=== PATIENT | female | born 1970 | race Caucasian/White ===

== ENCOUNTER 2019-10-04 15:03 | Emergency (ER) | payer OTHER ==
[~2019-10-04] VITALS: Ht 167.6 cm; Wt 122.5 kg
[~2019-10-04 15:03] MED LIST: CARVEDILOL12.5 MG PO; GEMFIBROZIL1 GM PO; LISINOPRIL10 MG PO; NORVASC2.5 MG PO
[2019-10-04] MEDS ORDERED: METFORMIN HCL500 M3 PO (15:17)
[2019-10-04] MEDS ORDERED: VICTOZA0.6 MG/0.1 SUBQ (15:17)
[2019-10-04 15:35] LABS: URINE BILIRUBIN NEGATIVE (Negative); URINE BLOOD NEGATIVE (Negative); URINE CLARITY CLEAR; URINE COLOR YELLOW; URINE GLUCOSE-RANDOM* NEGATIVE (Negative); URINE KETONES TRACE (Negative); URINE LEUKOCYTES-REFLEX NEGATIVE (Negative); URINE NITRITE-REFLEX NEGATIVE (Negative); URINE PROTEIN (DIPSTICK) NEGATIVE (Negative)
[2019-10-04 16:13] LABS: ABSOLUTE NEUTROPHILS 2.7 thou/uL (1.4-8.2); BASOPHILS 0.6 % (0.0-2.0); EOSINOPHILS 2.8 % (0.0-3.0); HEMATOCRIT 36.6 % (37.0-47.0); HEMOGLOBIN 12.5 gm/dL (12.0-15.0); MCH 27.9 pg (26.0-34.0); MCHC 34.2 g/dL (28.0-37.0); MCV 81.6 fL (80.0-100.0); MONOCYTES 8.4 % (1.0-8.0); PLATELET COUNT 234 thou/uL (150-400); POLYS 55.2 % (36.0-66.0); RBC 4.49 mil/uL (4.20-5.00); RDW 14.3 % (10.5-14.5); WBC 4.8 thou/uL (4.0-11.0)
[2019-10-04 16:22] LABS: CALCIUM 8.8 mg/dL (8.5-10.1); POTASSIUM 4.2 mmol/L (3.5-5.1)
[2019-10-04 16:27] LABS: ALBUMIN 3.3 g/dL (3.4-5.0); TOTAL BILIRUBIN 0.2 mg/dL (0.2-1.0)
[2019-10-04] MEDS ORDERED: PEPCID40 MG PO (16:58)
[2019-10-04] MEDS ORDERED: ZOFRAN ODT4 MG PO (16:58)
[2019-10-04] MEDS ORDERED: BENTYL 20 MG TA20 M1 PO (16:58)
[2019-10-04 17:13] VITALS: BP 141/103
--- NOTE | 2019-10-06 08:48 | EKG ---
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 10/06/19 0846 1558 1558 Taz France MD, [facility] /EPI
[2019-10-07] MEDS ORDERED: NAPROSYN500 MG PO (00:02)
[2019-10-07] MEDS ORDERED: NORCO 5-325 TA1 EAC1 PO (00:02)
[2019-10-07] MEDS ORDERED: ONDANSETRON ODT8 MG PO (00:02)
== END 2019-10-04 17:13 | disposition home or self-care (01) ==
LOC: ER 15:03
PROVIDERS: Nurse Practitioner Family
DX: R10.84 Generalized abdominal pain (principal); R11.2 Nausea with vomiting, unspecified; I10 Essential (primary) hypertension; E66.9 Obesity, unspecified; Z88.6 Allergy status to analgesic agent; Z88.5 Allergy status to narcotic agent; Z79.899 Other long term (current) drug therapy; Z87.442 Personal history of urinary calculi; Z90.710 Acquired absence of both cervix and uterus

== ENCOUNTER 2019-10-14 10:53 | Emergency (ER) | payer OTHER ==
[~2019-10-14] VITALS: Ht 167.6 cm; Wt 104.3 kg
[~2019-10-14 10:53] MED LIST changes: +BENTYL 20 MG TA20 M1 PO; +METFORMIN HCL500 M3 PO; +NAPROSYN500 MG PO; +NORCO 5-325 TA1 EAC1 PO; +ONDANSETRON ODT8 MG PO; +PEPCID40 MG PO; +VICTOZA0.6 MG/0.1 SUBQ; +ZOFRAN ODT4 MG PO
[2019-10-14 11:58] LABS: CALCIUM 9.3 mg/dL (8.5-10.1); CREATININE 1.1 mg/dL (0.6-1.0); MAGNESIUM 1.9 mg/dL (1.8-2.4); POTASSIUM 3.8 mmol/L (3.5-5.1)
[2019-10-14 12:05] LABS: ABSOLUTE NEUTROPHILS 2.9 thou/uL (1.4-8.2); BASOPHILS 0.5 % (0.0-2.0); EOSINOPHILS 4.7 % (0.0-3.0); HEMATOCRIT 40.8 % (37.0-47.0); HEMOGLOBIN 13.6 gm/dL (12.0-15.0); LYMPHOCYTES 38.3 % (24.0-44.0); MCH 27.6 pg (26.0-34.0); MCHC 33.4 g/dL (28.0-37.0); MCV 82.6 fL (80.0-100.0); MONOCYTES 7.1 % (1.0-8.0); PLATELET COUNT 241 thou/uL (150-400); POLYS 49.4 % (36.0-66.0); RBC 4.94 mil/uL (4.20-5.00); RDW 14.8 % (10.5-14.5); WBC 5.8 thou/uL (4.0-11.0)
[2019-10-14 12:22] LABS: URINE BLOOD NEGATIVE (Negative); URINE CLARITY CLEAR; URINE COLOR YELLOW; URINE GLUCOSE-RANDOM* NEGATIVE (Negative); URINE KETONES TRACE (Negative); URINE LEUKOCYTES-REFLEX NEGATIVE (Negative); URINE NITRITE-REFLEX NEGATIVE (Negative); URINE PROTEIN (DIPSTICK) NEGATIVE (Negative); URINE SPECIFIC GRAVITY >= 1.030 (1.005-1.035); URINE UROBILINOGEN 0.2 E.U./dl (0.2-1.0)
[2019-10-14 12:25] LABS: URINE BILIRUBIN NEGATIVE (Negative)
[2019-10-14 12:26] LABS: ICTOTEST (BILI CONFIRMATORY) Negative (Negative)
[2019-10-14 14:06] VITALS: BP 151/104
--- NOTE | 2019-10-14 16:04 | EKG ---
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[facility] : 1970 Requested By: Stefan Ron Order Number: [id number] MD: Bahman Malone Measurements Intervals [place] Rate: 99 P: 23 CT: 153 QRS: -19 QRSD: 91 T: 64 QT: 352 QTc: 452 Interpretive Statements Sinus rhythm Left ventricular hypertrophy Inferior infarct, old Compared to ECG 10/04/2019 15:58:50 Left ventricular hypertrophy now present Myocardial infarct finding now present Electronically Signed On 10-14-2019 16:03:29 CDT by Bahman Maolne [email or web address] <ELECTRONICALLY SIGNED> By: Bahman Malone MD 10/14/19 1603 1107 1107 Bahman Malone MD /EPI
== END 2019-10-14 14:09 | disposition home or self-care (01) ==
LOC: ER 10:53
PROVIDERS: Emergency Medicine
DX: S09.90XA Unspecified injury of head, initial encounter (principal); R53.1 Weakness; M79.601 Pain in right arm; R11.10 Vomiting, unspecified; R30.9 Painful micturition, unspecified; I10 Essential (primary) hypertension; Z90.710 Acquired absence of both cervix and uterus; Z87.891 Personal history of nicotine dependence; Z79.899 Other long term (current) drug therapy; Z88.8 Allergy status to other drugs, medicaments and biological substances; W18.39XA Other fall on same level, initial encounter; Y93.89 Activity, other specified; Y92.89 Other specified places as the place of occurrence of the external cause; Y99.8 Other external cause status

== ENCOUNTER 2019-11-30 15:57 | Emergency (ER) | payer OTHER ==
[~2019-11-30] VITALS: Ht 167.6 cm; Wt 108.8 kg
[2019-11-30 16:29] LABS: URINE BILIRUBIN NEGATIVE (Negative); URINE BLOOD NEGATIVE (Negative); URINE CLARITY CLEAR; URINE COLOR YELLOW; URINE GLUCOSE-RANDOM* NEGATIVE (Negative); URINE KETONES NEGATIVE (Negative); URINE LEUKOCYTES-REFLEX NEGATIVE (Negative); URINE NITRITE-REFLEX NEGATIVE (Negative); URINE PROTEIN (DIPSTICK) NEGATIVE (Negative); URINE SPECIFIC GRAVITY 1.025 (1.005-1.035)
[2019-11-30 16:36] LABS: MCH 27.7 pg (26.0-34.0); PLATELET COUNT 231 thou/uL (150-400)
[2019-11-30 16:37] LABS: ABSOLUTE NEUTROPHILS 2.4 thou/uL (1.4-8.2); BASOPHILS 1.7 % (0.0-2.0); CALCIUM 9.1 mg/dL (8.5-10.1); CREATININE 1.1 mg/dL (0.6-1.0); EOSINOPHILS 3.4 % (0.0-3.0); HEMOGLOBIN 12.1 gm/dL (12.0-15.0); LYMPHOCYTES 39.4 % (24.0-44.0); MCHC 33.6 g/dL (28.0-37.0); MCV 82.4 fL (80.0-100.0); MONOCYTES 6.6 % (1.0-8.0); POLYS 48.9 % (36.0-66.0); POTASSIUM 4.4 mmol/L (3.5-5.1); RBC 4.37 mil/uL (4.20-5.00)
[2019-11-30 16:44] LABS: ALBUMIN 3.5 g/dL (3.4-5.0); TOTAL BILIRUBIN 0.2 mg/dL (0.2-1.0); TOTAL PROTEIN 7.4 g/dL (6.4-8.2)
[2019-11-30] MEDS ORDERED: PROTONIX40 M4 PO (18:02)
[2019-11-30] MEDS ORDERED: ZOFRAN ODT4 MG PO (18:02)
[2019-11-30 18:15] VITALS: BP 155/104
--- NOTE | 2019-12-01 08:19 | EKG ---
[facility] [place] [address] [place] [address] ELECTROCARDIOGRAM REPORT Name: SELENE WHITE Room #: 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 : 1970 Requested By: Mike Aguilar Order Number: [id number] MD: Taz France Measurements Intervals [place] Rate: 87 P: 12 NM: 171 QRS: -16 QRSD: 95 T: 50 QT: 349 QTc: 420 Interpretive Statements Sinus rhythm Left ventricular hypertrophy Poor R wave progression Inferior infarct, age indeterminate Compared to ECG 10/14/2019 11:07:14 No significant change was found Electronically Signed On 12-01-2019 8:19:42 CDT by Taz France [email or web address] <ELECTRONICALLY SIGNED> By: Taz France MD, [facility] 12/01/19 0819 1716 1716 Taz France MD, [facility] /EPI
== END 2019-11-30 18:16 ==
LOC: ER 15:57
PROVIDERS: Emergency Medicine
DX: R07.89 Other chest pain (principal); R11.2 Nausea with vomiting, unspecified; R10.11 Right upper quadrant pain; I10 Essential (primary) hypertension; Z90.710 Acquired absence of both cervix and uterus; Z79.899 Other long term (current) drug therapy; Z88.8 Allergy status to other drugs, medicaments and biological substances

== ENCOUNTER 2019-12-04 20:02 | Emergency (ER) | payer OTHER ==
[~2019-12-04] VITALS: Ht 152.4 cm; Wt 108.9 kg
[~2019-12-04 20:02] MED LIST changes: +PROTONIX40 M4 PO
[2019-12-04 20:25] LABS: HEMATOCRIT 38.7 % (37.0-47.0); HEMOGLOBIN 13.1 gm/dL (12.0-15.0); MCH 27.6 pg (26.0-34.0); MCHC 33.8 g/dL (28.0-37.0); MCV 81.5 fL (80.0-100.0); RBC 4.75 mil/uL (4.20-5.00); RDW 14.5 % (10.5-14.5); WBC 5.6 thou/uL (4.0-11.0)
[2019-12-04 20:32] LABS: URINE BILIRUBIN NEGATIVE (Negative); URINE BLOOD NEGATIVE (Negative); URINE CLARITY CLEAR; URINE COLOR YELLOW; URINE GLUCOSE-RANDOM* NEGATIVE (Negative); URINE KETONES NEGATIVE (Negative); URINE LEUKOCYTES-REFLEX NEGATIVE (Negative); URINE NITRITE-REFLEX NEGATIVE (Negative); URINE PROTEIN (DIPSTICK) NEGATIVE (Negative); URINE SPECIFIC GRAVITY 1.015 (1.005-1.035)
[2019-12-04 20:42] LABS: ANION GAP 12 mmol/L (7-16); BUN 15 mg/dL (7-18); CALCIUM 9.4 mg/dL (8.5-10.1); CHLORIDE 104 mmol/L (98-107); CO2 23 mmol/L (21-32); GLUCOSE 127 mg/dL (74-106); SODIUM 139 mmol/L (136-145)
[2019-12-04 20:48] LABS: ALBUMIN 3.9 g/dL (3.4-5.0); LIPASE 224 U/L (73-393); SGOT 24 U/L (15-37); SGPT 37 U/L (30-65); TOTAL BILIRUBIN 0.4 mg/dL (0.2-1.0); TOTAL PROTEIN 7.6 g/dL (6.4-8.2); TROPONIN-I <0.06 ng/mL (<0.06)
[2019-12-04] MEDS ORDERED: CARAFATE 1 GM TA1 GM PO (21:25)
[2019-12-04 21:28] VITALS: BP 150/113
--- NOTE | 2019-12-05 09:16 | EKG ---
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: F 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[place] [id number] : 1970 Requested By: George Flores Order Number: [id number] MD: Taz France Measurements Intervals [place] Rate: 90 P: 6 IA: 167 QRS: -14 QRSD: 92 T: 56 QT: 458 QTc: 561 Interpretive Statements Sinus rhythm Inferior infarct, old Prolonged QT interval Baseline wander in lead(s) III,aVF,V6 Compared to ECG 11/30/2019 17:16:14 Prolonged QT interval now present Electronically Signed On 12-05-2019 9:15:56 CDT by Taz France [email or web address] <ELECTRONICALLY SIGNED> By: Taz France MD, [facility] 12/05/19 0915 16 16 Taz France MD, [facility] /EPI
== END 2019-12-04 21:29 | disposition home or self-care (01) ==
LOC: ER 20:02
PROVIDERS: Emergency Medicine
DX: R10.13 Epigastric pain (principal); R11.2 Nausea with vomiting, unspecified; I10 Essential (primary) hypertension; Z88.6 Allergy status to analgesic agent; Z88.5 Allergy status to narcotic agent; Z79.899 Other long term (current) drug therapy; Z90.710 Acquired absence of both cervix and uterus; Z87.442 Personal history of urinary calculi

== ENCOUNTER 2020-01-06 08:03 | Emergency (ER) | payer OTHER ==
[~2020-01-06] VITALS: Ht 167.6 cm; Wt 111.1 kg
--- NOTE | ~2020-01-06 | EMS ---
[facility] [address] [place] [address] EMS Patient Care Report Name: SELENE WHITE Room #: PRE M.R.#: [id number] Admission: Attend Phys: Discharge: Date of : 72 Report #: [id number] THIS REPORT FOR: //name// Report Transmitted: 01/06/2020 08:08 EMS Care Summary [place], [place]/[facility] Incident [id number] @ 01/06/2020 07:35 Incident Location [address] [place] [address] [address] Patient SELENE WHITE Female, 49 Years 1970 Patient Address [address] [place] [address] [address] [place] [address] Patient History Diabetes,Hypertension (HTN),Kidney Stone, Patient Allergies Toradol,Compazine, Patient Medications Lisinopril, Metformin, Atorvastatin, Victoza, Carvedilol, Chief Complaint back pain, cough Disposition Transported No Lights/[place] Dispatch Reason Back Pain (Non-Traumatic) Transported To [facility] Narrative PT FOUND SITTING OUTSIDE. PT STATES SHE HAS BACK PAIN AND A COUGH FOR 2 DAYS. PT DENIES OTHER COMPLAINTS. PT ASSITED TO AMBULANCE. PT GIVEN MASK FOR TRASNPORT. PT TRANSPORTED WITHOUT INCIDENT. [facility] [address] [place] [address] EMS Patient Care Report Name: SELENE WHITE Room #: PRE M.R.#: [id number] Admission: Attend Phys: Discharge: Date of : 72 Report #: [id number] Initial Vitals @07:48P: 91,R: 18,BP: 126/86,Pain: 4/10,GCS: 15,CO: 2,SpO2: 97,Revised Trauma: 12, Assessments @07:45MENTAL:No Abnormalities,SKIN:No Abnormalities,HEENT:Head/Face: No Abnormalities,Eyes: No Abnormalities,Neck/Airway: No Abnormalities,LUNG SOUNDS:ABDOMEN:PELVIS//GI:EXTREMITIES:PULSE:NEURO:No Abnormalities, Impression Back Pain Procedures @07:45ALS AssessmentResponse: UnchangedSucceeded Timeline 07:34,Call Received 07:34,Dispatch Notified 07:35,Dispatched 07:38,En Route 07:42,On Scene 07:45,At Patient 07:45,ALS Assessment,Response: UnchangedSucceeded, 07:47,Depart Scene 07:48,BP: 126/86 M,PULSE: 91,RR: 18 R,SPO2: 97 Ox,ETCO2: ,BG: ,PAIN: 4,GCS: 15, 08:00,At Destination 08:15,Call Closed Disclaimer v1.1 Copyright 2020 [employer] This EMS Care Summary contains data elements from the applicable legal record (which may be displayed differently). It is designed to provide pertinent information for the following purposes: continuity of care, clinical quality, and state data reporting. The complete legal record is available to ED staff and administrators of the receiving hospital in [facility]'s Patient Tracker. All data is provided "as is."
[~2020-01-06 08:03] MED LIST changes: +CARAFATE 1 GM TA1 GM PO
[2020-01-06 09:53] LABS: URINE BILIRUBIN NEGATIVE (Negative); URINE BLOOD NEGATIVE (Negative); URINE CLARITY CLEAR; URINE COLOR YELLOW; URINE GLUCOSE-RANDOM* NEGATIVE (Negative); URINE KETONES NEGATIVE (Negative); URINE LEUKOCYTES-REFLEX NEGATIVE (Negative); URINE NITRITE-REFLEX NEGATIVE (Negative); URINE PROTEIN (DIPSTICK) NEGATIVE (Negative); URINE UROBILINOGEN 0.2 E.U./dl (0.2-1.0)
[2020-01-06 11:18] VITALS: BP 114/80
== END 2020-01-06 11:18 | disposition home or self-care (01) ==
LOC: ER 08:03
PROVIDERS: Emergency Medicine
DX: J02.9 Acute pharyngitis, unspecified (principal); Z20.828 Contact with and (suspected) exposure to other viral communicable diseases; R05 Cough; R35.0 Frequency of micturition; R30.0 Dysuria; M54.5 Low back pain; I10 Essential (primary) hypertension; Z87.442 Personal history of urinary calculi; Z90.711 Acquired absence of uterus with remaining cervical stump; Z79.899 Other long term (current) drug therapy; Z88.6 Allergy status to analgesic agent; Z88.8 Allergy status to other drugs, medicaments and biological substances

== ENCOUNTER 2020-01-19 10:26 | Emergency (ER) | payer OTHER ==
[~2020-01-19] VITALS: Ht 167.6 cm; Wt 115.2 kg
[2020-01-19 11:44] VITALS: BP 134/92
== END 2020-01-19 11:55 | disposition home or self-care (01) ==
LOC: ER 10:26
DX: R50.9 Fever, unspecified (principal); I10 Essential (primary) hypertension; Z90.710 Acquired absence of both cervix and uterus; Z79.899 Other long term (current) drug therapy; Z88.8 Allergy status to other drugs, medicaments and biological substances; Z20.828 Contact with and (suspected) exposure to other viral communicable diseases

== ENCOUNTER 2020-02-10 13:24 | Emergency (ER) | payer OTHER ==
[~2020-02-10] VITALS: Ht 167.6 cm; Wt 114.8 kg
[2020-02-10 17:12] LABS: ABSOLUTE NEUTROPHILS 4.4 thou/uL (1.4-8.2); BASOPHILS 0.4 % (0.0-2.0); EOSINOPHILS 1.9 % (0.0-3.0); HEMATOCRIT 40.1 % (37.0-47.0); HEMOGLOBIN 13.2 gm/dL (12.0-15.0); LYMPHOCYTES 27.4 % (24.0-44.0); MCH 27.7 pg (26.0-34.0); MCHC 32.8 g/dL (28.0-37.0); MCV 84.4 fL (80.0-100.0); MONOCYTES 7.1 % (1.0-8.0); PLATELET COUNT 278 thou/uL (150-400); POLYS 63.2 % (36.0-66.0); RBC 4.75 mil/uL (4.20-5.00); RDW 14.6 % (10.5-14.5)
[2020-02-10 17:34] LABS: ANION GAP 14 mmol/L (7-16); BUN 19 mg/dL (7-18); CALCIUM 9.6 mg/dL (8.5-10.1); CHLORIDE 105 mmol/L (98-107); CO2 23 mmol/L (21-32); CREATININE 0.9 mg/dL (0.6-1.0); GLUCOSE 116 mg/dL (74-106); POTASSIUM 4.3 mmol/L (3.5-5.1); SODIUM 142 mmol/L (136-145)
[2020-02-10 17:44] LABS: ALBUMIN 4.3 g/dL (3.4-5.0); DIRECT BILIRUBIN 0.1 mg/dL (<0.1-0.2); LIPASE 439 U/L (73-393); SGOT 20 U/L (15-37); SGPT 37 U/L (30-65); TOTAL BILIRUBIN 0.4 mg/dL (0.2-1.0); TROPONIN-I <0.06 ng/mL (<0.06)
[2020-02-10 19:19] LABS: URINE BILIRUBIN NEGATIVE (Negative); URINE BLOOD NEGATIVE (Negative); URINE CLARITY CLEAR; URINE COLOR YELLOW; URINE GLUCOSE-RANDOM* NEGATIVE (Negative); URINE KETONES NEGATIVE (Negative); URINE LEUKOCYTES-REFLEX NEGATIVE (Negative); URINE NITRITE-REFLEX NEGATIVE (Negative); URINE PROTEIN (DIPSTICK) NEGATIVE (Negative); URINE SPECIFIC GRAVITY >= 1.030 (1.005-1.035); URINE UROBILINOGEN 0.2 E.U./dl (0.2-1.0)
[2020-02-10 19:31] VITALS: BP 168/114
--- NOTE | 2020-02-11 07:34 | EKG ---
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 : 1970 Requested By: Oc Alfred Order Number: [id number] MD: Dayday Varner Measurements Intervals [place] Rate: 80 P: 46 NV: 160 QRS: -11 QRSD: 104 T: 128 QT: 474 QTc: 547 Interpretive Statements Sinus rhythm Probable LVH with secondary repol abnrm INFERIOR INFARCT, AGE INDETERMINATE Baseline wander in lead(s) I,V1,V6 Compared to ECG 12/04/2019 20:17:42 Left ventricular hypertrophy now present Q waves now present Myocardial infarct finding still present Electronically Signed On 02-11-2020 7:34:44 CDT by Dayday Varner [email or web address] <ELECTRONICALLY SIGNED> By: Dayday Varner MD, FACC 02/11/20 0734 07 07 Dayday Varner MD, [facility] /EPI
--- NOTE | 2020-02-11 12:06 | EKG ---
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 : 1970 Requested By: Oc Alfred Order Number: [id number] MD: Dayday Varner Measurements Intervals [place] Rate: 80 P: 33 [place]: 173 QRS: -14 QRSD: 99 T: 74 QT: 350 QTc: 404 Interpretive Statements Sinus rhythm Left ventricular hypertrophy Inferior infarct, old Baseline wander in lead(s) V6 Compared to ECG 02/10/2020 18:08:40 No significant changes Electronically Signed On 02-11-2020 12:06:11 CDT by Dayday Varner [email or web address] <ELECTRONICALLY SIGNED> By: Dayday Varner MD, FACC 02/11/20 1206 24 24 Dayday Varner MD, [facility] /EPI
== END 2020-02-10 19:45 | disposition home or self-care (01) ==
LOC: ER 13:24
PROVIDERS: Nurse Practitioner
DX: U07.1 COVID-19 (principal); J06.9 Acute upper respiratory infection, unspecified; R07.89 Other chest pain; I10 Essential (primary) hypertension; Z79.899 Other long term (current) drug therapy; Z90.710 Acquired absence of both cervix and uterus; Z88.8 Allergy status to other drugs, medicaments and biological substances

== ENCOUNTER 2020-09-27 13:14 | Emergency (ER) | payer OTHER ==
[~2020-09-27] VITALS: Ht 167.6 cm; Wt 111.6 kg
--- NOTE | ~2020-09-27 | EMS ---
[facility] [address] [place] [address] EMS Patient Care Report Name: SELENE WHITE Room #: [facility] Arteaga#: [id number] Admission: 09/27/20 Attend Phys: Discharge: 09/27/20 Date of : 72 Report #: [id number] THIS REPORT FOR: //name// Report Transmitted: 09/27/2020 18:02 EMS Care Summary [place], [place]/[facility] Incident [id number] @ 09/27/2020 12:48 Incident Location [address] [place] [address] [address] Patient SELENE WHITE Female, 50 Years 1970 Patient Address [address] [place] [address] [address] [place] [id number] Patient History Other,Asthma,Diabetes,Hypertension (HTN),Cholecystectomy,Anxiety,Hysterectomy,Kidney Stone, Patient Allergies Toradol,Tramadol,Compazine, Patient Medications Lisinopril, Carvedilol, Atorvastatin, Victoza, Albuterol, Metformin, Chief Complaint SOA Disposition Transported No Lights/[place] Dispatch Reason Breathing Problem Transported To [facility] Narrative Station 37 responded immediately to the scene of Breathing Problems. [id number] arrived first on scene and met pt standing curbside. [facility] [address] [place] [address] EMS Patient Care Report Name: SELENE WHITE Room #: DEP Jenni#: [id number] Admission: 09/27/20 Attend Phys: Discharge: 09/27/20 Date of : 72 Report #: [id number] Upon arrival, pt found SANCHEZ. She is familiar to us as we administered a breathing treatment to her this morning. She refused transport at that time. Since this morning, pt has had worsening upper back pain and making it to where it's making her feel like she keeps having SOA episodes. Now, requesting EMS transport and agreeable to transport to [facility]. Escorted pt to back of ambulance and secured on cot. Primary ALS assessment peformed, vitals established, DuoNeb initiated, then transport to began. Contacted with a 5 minute ETA, and report given. During transport, pt reports relief with the breathing treatment but her back pain persists. Arrived at and pt to ER 05. Report to RN then care released. Initial Vitals @12:54P: 93,R: 24,BP: 136/83,GCS: 15,CO: 3,SpO2: 94,Revised Trauma: 12, @13:08P: 74,R: 19,Pain: 7/10,GCS: 15,SpO2: 98,Revised Trauma: 12, Assessments @12:54MENTAL:Person Oriented,Time Oriented,Place Oriented,Event Oriented,SKIN:HEENT:LUNG SOUNDS:ABDOMEN:PELVIS//GI:EXTREMITIES:PULSE:Radial: 2+ Normal,NEURO: Impression Shortness of breath Procedures @12:54ALS AssessmentResponse: UnchangedSucceeded@12:55Albuterol - 2.5 Milligrams (mg) - NebulizedResponse: Improved@12:55Atrovent - 0.5 Milligrams (mg) - NebulizedResponse: Improved Timeline 12:47,Call Received 12:47,Dispatch Notified 12:48,Dispatched 12:49,En Route 12:53,On Scene 12:53,At Patient 12:54,ALS Assessment,Response: UnchangedSucceeded, 12:54,BP: 136/83 M,PULSE: 93,RR: 24 R,SPO2: 94 Ox,ETCO2: ,BG: ,PAIN: ,GCS: 15, 12:55,Albuterol - 2.5 Milligrams (mg) - Nebulized,Response: Improved 12:55,Atrovent - 0.5 Milligrams (mg) - Nebulized,Response: Improved 12:58,Depart Scene 13:08,BP: 134/ M,PULSE: 74,RR: 19 R,SPO2: 98 Ox,ETCO2: ,BG: ,PAIN: 7,GCS: 15, 13:11,At Destination 13:26,Call Closed [address] [address] EMS Patient Care Report Name: SELENE WHITE [facility] [id number] Admission: 09/27/20 Attend Phys: Discharge: 09/27/20 Date of : 72 Report #: [id number] Disclaimer v1.1 Copyright 2020 [employer] This EMS Care Summary contains data elements from the applicable legal record (which may be displayed differently). It is designed to provide pertinent information for the following purposes: continuity of care, clinical quality, and state data reporting. The complete legal record is available to ED staff and administrators of the receiving hospital in [facility]'s Patient Tracker. All data is provided "as is."
[2020-09-27 16:00] LABS: HEMATOCRIT 32.7 % (37.0-47.0); HEMOGLOBIN 10.8 gm/dL (12.0-15.0); MCH 27.3 pg (26.0-34.0); MCV 82.8 fL (80.0-100.0); RBC 3.96 mil/uL (4.20-5.00); WBC 6.4 thou/uL (4.0-11.0)
[2020-09-27 16:05] LABS: ANION GAP 6 mmol/L (7-16); BUN 15 mg/dL (7-18); CALCIUM 8.9 mg/dL (8.5-10.1); CHLORIDE 104 mmol/L (98-107); CO2 30 mmol/L (21-32); CREATININE 0.9 mg/dL (0.6-1.0); GLUCOSE 110 mg/dL (74-106); POTASSIUM 4.4 mmol/L (3.5-5.1); SODIUM 140 mmol/L (136-145)
[2020-09-27 16:14] LABS: ALBUMIN 3.3 g/dL (3.4-5.0); SGOT 22 U/L (15-37); SGPT 34 U/L (14-59); TOTAL BILIRUBIN 0.3 mg/dL (0.2-1.0); TOTAL PROTEIN 6.7 g/dL (6.4-8.2); TROPONIN-I <0.06 ng/mL (<0.06)
[2020-09-27] MEDS ORDERED: ELIQUIS5 M1 PO (17:39)
[2020-09-27] MEDS ORDERED: PREDNISONE 10 M10 MG PO (17:39)
[2020-09-27] MEDS ORDERED: ALBUTEROL2.5 MG/31 INH (17:39)
[2020-09-27 18:20] VITALS: BP 140/92
== END 2020-09-27 18:20 | disposition home or self-care (01) ==
LOC: ER 13:14
PROVIDERS: Nurse Practitioner Family
DX: J45.901 Unspecified asthma with (acute) exacerbation (principal); Z20.822 Contact with and (suspected) exposure to COVID-19; I82.452 Acute embolism and thrombosis of left peroneal vein; J45.909 Unspecified asthma, uncomplicated; I10 Essential (primary) hypertension; Z90.711 Acquired absence of uterus with remaining cervical stump; Z87.442 Personal history of urinary calculi; Z79.899 Other long term (current) drug therapy; Z88.6 Allergy status to analgesic agent; Z88.8 Allergy status to other drugs, medicaments and biological substances

== ENCOUNTER 2020-10-19 16:25 | Emergency (ER) | payer OTHER ==
[~2020-10-19] VITALS: Ht 167.6 cm; Wt 113.4 kg
[~2020-10-19 16:25] MED LIST changes: +ALBUTEROL2.5 MG/31 INH; +ELIQUIS5 M1 PO; +PREDNISONE 10 M10 MG PO
[2020-10-19 18:59] VITALS: BP 149/93
== END 2020-10-19 19:04 | disposition home or self-care (01) ==
LOC: ER 16:25
DX: S70.12XA Contusion of left thigh, initial encounter (principal); S80.12XA Contusion of left lower leg, initial encounter; I10 Essential (primary) hypertension; Z87.442 Personal history of urinary calculi; Z90.710 Acquired absence of both cervix and uterus; Z88.6 Allergy status to analgesic agent; Z88.8 Allergy status to other drugs, medicaments and biological substances; W18.39XA Other fall on same level, initial encounter; Y93.89 Activity, other specified; Y92.89 Other specified places as the place of occurrence of the external cause; Y99.8 Other external cause status

== ENCOUNTER 2020-10-28 09:43 | Emergency (ER) | payer OTHER ==
[~2020-10-28] VITALS: Ht 167.6 cm; Wt 113.4 kg
--- NOTE | ~2020-10-28 | EMS ---
[facility] [address] [place] [address] EMS Patient Care Report Name: SELENE WHITE Room #: [facility]OL[facility] Arteaga#: [id number] Admission: 10/28/20 Attend Phys: Discharge: Date of : 72 Report #: [id number] THIS REPORT FOR: //name// Report Transmitted: 10/28/2020 09:09 EMS Care Summary [place], [place]/[facility] Incident [id number] @ 10/28/2020 08:51 Incident Location [address] [place] [address] [address] Patient SELENE WHITE Female, 50 Years 1970 Patient Address [address] [place] [address] [address] [place] [address] Patient History Other,Asthma,Diabetes,Hypertension (HTN),Cholecystectomy,Anxiety,Hysterectomy,Kidney Stone, Patient Allergies Other drug allergy,Toradol,Compazine, Patient Medications Metformin, Eliquis, Albuterol, Carvedilol, Victoza, Atorvastatin, Lisinopril, Chief Complaint SHORTNESS OF BREATH Disposition Transported No Lights/[place] Dispatch Reason Breathing Problem Transported To [facility] Narrative S: 50 Y/O FEMALE FOUND SITTING OUTSIDE OF HER APARTMENT BUILDING WITH SUPPRESSION PERSONNEL C/O SHORTNESS OF BREATH AND CHEST DISCOMFORT SINCE [facility] [address] [place] [address] EMS Patient Care Report Name: SELENE WHITE Room #: [facility] Arteaga#: [id number] Admission: 10/28/20 Attend Phys: Discharge: Date of : 72 Report #: [id number] YESTERDAY. SHE IS ALERT AND ORIENTED X 4 AND REPORTS THAT SHE ALSO VOMITED X 1 EARLIER TODAY. SHE TOOK ZOFRAN AND AN ALBUTEROL TREATMENT PRIOR TO EMS ARRIVAL. PATIENT DENIES CURRENT NAUSEA, DIAPHORESIS, OR VISION CHANGES AND IS ABLE TO SPEAK FULL SENTENCES BETWEEN BREATHS WITHOUT DIFFICULTY. PATIENT WAS TREATED BY EMS LAST NIGHT BUT REFUSED TRANSPORT AT THAT TIME. O: SEE ASSESSMENT SECTION. A: ASTHMA EXACERBATION. P: SEE FLOW CHART SECTION. Initial Vitals @09:38P: 70,R: 24,BP: 111/66,Pain: 8/10,GCS: 15,CO: 4,SpO2: 97,Revised Trauma: 12, @09:11P: 73,R: 24,BP: 121/75,Pain: 8/10,GCS: 15,SpO2: 97,Revised Trauma: 12, Assessments @09:06MENTAL:Time Oriented,Person Oriented,Place Oriented,Event Oriented,SKIN:HEENT:Eyes: Left Pupil: 4-mm,Eyes: Right Pupil: 4-mm,LUNG SOUNDS:ABDOMEN:PELVIS//GI:EXTREMITIES:Capillary Refill: Right Upper: < 2 Sec,PULSE:Radial: 2+ Normal,NEURO: Impression Asthma Procedures @PTABLS AssessmentResponse: Unchanged@PTAOxygen FlowRate: 3 Device: Nasal Cannula (NC) Response: ImprovedSucceeded@09:19Saline Lock 0cc (24 ga) Site: Antecubital-LeftResponse: UnchangedFailed@09:15Saline Lock 0cc (24 ga) Site: Forearm-LeftResponse: UnchangedFailed@09:10Albuterol - 2.5 Milligrams (mg) - NebulizedResponse: Unchanged@09:26Albuterol - 2.5 Milligrams (mg) - NebulizedResponse: Unchanged@09:10Atrovent - 0.5 Milligrams (mg) - NebulizedResponse: Unchanged@09:06ALS AssessmentResponse: UnchangedSucceeded Timeline SILVICULTURE PROFESSOR,BLS Assessment,Response: Unchanged SILVICULTURE PROFESSOR,Oxygen FlowRate: 3 Device: Nasal Cannula (NC) Response: ImprovedSucceeded, 08:50,Call Received 08:50,Dispatch Notified 08:51,Dispatched 08:53,En Route 09:05,On Scene 09:06,At Patient 09:06,ALS Assessment,Response: UnchangedSucceeded, 09:10,Albuterol - 2.5 Milligrams (mg) - Nebulized,Response: Unchanged [facility] [address] [place] [address] EMS Patient Care Report Name: SELENE WHITE Zoey Room #: [facility] CAROLINA Arteaga#: [id number] Admission: 10/28/20 Attend Phys: Discharge: Date of : 72 Report #: [id number] 09:10,Atrovent - 0.5 Milligrams (mg) - Nebulized,Response: Unchanged 09:11,BP: 121/75 M,PULSE: 73,RR: 24 R,SPO2: 97 Ox,ETCO2: ,BG: ,PAIN: 8,GCS: 15, 09:15,Saline Lock 0cc 24 ga Site: Forearm-Left,Response: UnchangedFailed, 09:19,Saline Lock 0cc 24 ga Site: Antecubital-Left,Response: UnchangedFailed, 09:23,Depart Scene 09:26,Albuterol - 2.5 Milligrams (mg) - Nebulized,Response: Unchanged 09:38,BP: 111/66 M,PULSE: 70,RR: 24 R,SPO2: 97 Ox,ETCO2: ,BG: ,PAIN: 8,GCS: 15, 09:40,At Destination 09:59,Call Closed Disclaimer v1.1 Copyright 2020 [employer] This EMS Care Summary contains data elements from the applicable legal record (which may be displayed differently). It is designed to provide pertinent information for the following purposes: continuity of care, clinical quality, and state data reporting. The complete legal record is available to ED staff and administrators of the receiving hospital in [employer]'s Patient Tracker. All data is provided "as is."
[2020-10-28 10:43] LABS: BE(vivo) -0.4 mmol/L (-2 to +3); HCO3 25.2 mmol/L (22.0-26.0); PCO2 45.8 mmHg (35.0-45.0); PO2 73.7 mmHg (80.0-100.0); pH 7.359 (7.360-7.450); sO2 94.2 % (92.0-98.0)
--- NOTE | 2020-10-28 10:47 | EKG ---
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 : 1970 Requested By: Lexx Mehta Order Number: [id number] MD: Dayday Varner Measurements Intervals [place] Rate: 72 P: 44 [place]: 155 QRS: -3 QRSD: 91 T: 30 QT: 388 QTc: 422 Interpretive Statements Sinus rhythm Compared to ECG 02/10/2020 19:25:08 Left ventricular hypertrophy no longer present Myocardial infarct finding no longer present Electronically Signed On 10-28-2020 10:47:16 CDT by Dayday Varner [email or web address] <ELECTRONICALLY SIGNED> By: Dayday Varner MD, [facility] 10/28/20 [address] [facility] Dayday Varner MD, FACSterling /EPI
--- NOTE | 2020-10-28 11:06 | NUR ---
PER GAVE 3RD PROTOCOL TREATMENT TO PATIENT EARLY.
[2020-10-28 12:00] LABS: URINE BLOOD NEGATIVE (Negative); URINE CLARITY CLOUDY; URINE COLOR YELLOW; URINE GLUCOSE-RANDOM* NEGATIVE (Negative); URINE KETONES TRACE (Negative); URINE LEUKOCYTES-REFLEX NEGATIVE (Negative); URINE NITRITE-REFLEX NEGATIVE (Negative); URINE PROTEIN (DIPSTICK) NEGATIVE (Negative); URINE SPECIFIC GRAVITY >= 1.030 (1.005-1.035); URINE UROBILINOGEN 0.2 E.U./dl (0.2-1.0)
[2020-10-28 12:03] LABS: ICTOTEST (BILI CONFIRMATORY) Negative (Negative); URINE BILIRUBIN NEGATIVE (Negative)
[2020-10-28 12:12] LABS: ABSOLUTE NEUTROPHILS 3.8 thou/uL (1.4-8.2); BASOPHILS 0.2 % (0.0-2.0); EOSINOPHILS 3.6 % (0.0-3.0); HEMATOCRIT 27.8 % (37.0-47.0); HEMOGLOBIN 9.3 gm/dL (12.0-15.0); MCH 27.9 pg (26.0-34.0); MCHC 33.3 g/dL (28.0-37.0); MCV 83.6 fL (80.0-100.0); MONOCYTES 7.2 % (1.0-8.0); PLATELET COUNT 177 thou/uL (150-400); RBC 3.32 mil/uL (4.20-5.00); RDW 14.8 % (10.5-14.5); WBC 5.8 thou/uL (4.0-11.0)
[2020-10-28 12:17] LABS: ANION GAP 7 mmol/L (7-16); BUN 16 mg/dL (7-18); CALCIUM 8.7 mg/dL (8.5-10.1); CHLORIDE 103 mmol/L (98-107); CO2 30 mmol/L (21-32); CREATININE 1.4 mg/dL (0.6-1.0); GLUCOSE 136 mg/dL (74-106); POTASSIUM 4.2 mmol/L (3.5-5.1); SODIUM 140 mmol/L (136-145)
[2020-10-28 12:27] LABS: ALBUMIN 3.4 g/dL (3.4-5.0); SGOT 13 U/L (15-37); SGPT 21 U/L (14-59); TOTAL BILIRUBIN 0.6 mg/dL (0.2-1.0); TOTAL PROTEIN 6.9 g/dL (6.4-8.2); TROPONIN-I <0.06 ng/mL (<0.06)
[2020-10-28] MEDS ORDERED: ZPAK PO (13:01)
[2020-10-28] MEDS ORDERED: PREDNISONE 20 M20 M1 PO (13:02)
[2020-10-28 13:10] VITALS: BP 122/71
== END 2020-10-28 13:10 | disposition home or self-care (01) ==
LOC: ER 09:43
PROVIDERS: Emergency Medicine
DX: J40 Bronchitis, not specified as acute or chronic (principal); I10 Essential (primary) hypertension; Z88.6 Allergy status to analgesic agent; Z88.8 Allergy status to other drugs, medicaments and biological substances; Z90.710 Acquired absence of both cervix and uterus; Z87.442 Personal history of urinary calculi

== ENCOUNTER 2021-04-20 14:09 | Emergency (ER) | payer OTHER ==
[~2021-04-20] VITALS: Ht 167.6 cm; Wt 117.9 kg
[~2021-04-20 14:09] MED LIST changes: +PREDNISONE 20 M20 M1 PO; +ZPAK PO
[2021-04-20 14:38] LABS: URINE BILIRUBIN 1+ (Negative); URINE BLOOD NEGATIVE (Negative); URINE CLARITY SL CLOUDY; URINE COLOR ORANGE; URINE GLUCOSE-RANDOM* NEGATIVE (Negative); URINE KETONES TRACE (Negative); URINE LEUKOCYTES-REFLEX NEGATIVE (Negative); URINE NITRITE-REFLEX NEGATIVE (Negative); URINE PROTEIN (DIPSTICK) NEGATIVE (Negative); URINE SPECIFIC GRAVITY >= 1.030 (1.005-1.035); URINE UROBILINOGEN 0.2 E.U./dl (0.2-1.0)
[2021-04-20 15:04] LABS: SQUAMOUS >10 Many /LPF (0-3)
[2021-04-20 15:05] LABS: BACTERIA-REFLEX 1-9 Few /HPF (None Seen); CASTS None Seen /LPF (None Seen); CRYSTALS None Seen /LPF (None Seen); MUCUS 4-6 Moderate strn/LPF (None Seen); URINE RBC 1-2 Rare /HPF (NONE SEEN); URINE WBC-REFLEX 0-5 Rare /HPF (0-5)
[2021-04-20 16:13] VITALS: BP 134/104
[2021-04-20] MEDS ORDERED: CEPHALEXIN 250250 M1 PO (16:49)
== END 2021-04-20 17:03 | disposition home or self-care (01) ==
LOC: ER 14:09
PROVIDERS: Emergency Medicine
DX: R10.31 Right lower quadrant pain (principal); I10 Essential (primary) hypertension; Z87.442 Personal history of urinary calculi; Z98.890 Other specified postprocedural states; Z90.710 Acquired absence of both cervix and uterus; Z79.891 Long term (current) use of opiate analgesic; Z79.1 Long term (current) use of non-steroidal anti-inflammatories (NSAID); Z79.899 Other long term (current) drug therapy; Z88.8 Allergy status to other drugs, medicaments and biological substances; Z88.6 Allergy status to analgesic agent